=== PATIENT | female | born 1935 | race Caucasian/White ===

== ENCOUNTER 2018-03-13 18:08 | Emergency (ER) | payer OTHER, BC ==
[~2018-03-13] VITALS: Ht 167.6 cm; Wt 59.9 kg
[2018-03-13] MEDS ORDERED: ASPIRIN81 M1 PO (18:40)
[2018-03-13] MEDS ORDERED: TOPROL XL25 MG PO (18:40)
[2018-03-13] MEDS ORDERED: SODIUM BICARBO650 MG PO (18:41)
[2018-03-13] MEDS ORDERED: OMEPRAZOLE40 MG PO (18:41)
[2018-03-13] MEDS ORDERED: LEVOXYL100 MCG PO (18:41)
[2018-03-13] MEDS ORDERED: Oscal,Oyster S500 MG PO (18:42)
== END 2018-03-13 20:40 | disposition home or self-care (01) ==
LOC: ED 18:08
DX: S20.211A Contusion of right front wall of thorax, initial encounter (principal); Z79.899 Other long term (current) drug therapy; Z79.82 Long term (current) use of aspirin; Z88.8 Allergy status to other drugs, medicaments and biological substances; V49.88XA Car occupant (driver) (passenger) injured in other specified transport accidents, initial encounter; Y93.89 Activity, other specified; Y92.89 Other specified places as the place of occurrence of the external cause; Y99.9 Unspecified external cause status